=== PATIENT | female | born 1970 | race Caucasian/White ===

== ENCOUNTER 2017-05-23 14:11 | Emergency (ER) | payer OTHER, BC ==
[~2017-05-23] VITALS: Ht 165.1 cm; Wt 86.0 kg
[2017-05-23 14:13] VITALS: BP 176/107; PULSE 95; RESP 20; TEMP 97.6; O2SAT 100
[2017-05-23] MEDS ORDERED: IBUP800T23 PO (14:44)
[2017-05-23] MEDS ORDERED: CYCL1TAB29 PO (14:44)
[2017-05-23] MEDS ORDERED: ORPHENADRINE INJ 60 MG/2 ML AMP IM ONE (14:45)
[2017-05-23] MEDS ORDERED: KETOROLAC TROMETHAMINE 60 MG/2 ML (IM) VIAL IM ONE (14:45)
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
[2017-05-23 15:25] VITALS: BP 143/87; PULSE 81
== END 2017-05-23 16:22 | disposition home or self-care (01) ==
LOC: NEPK 14:11
DX: S20.211A Contusion of right front wall of thorax, initial encounter (principal); S16.1XXA Strain of muscle, fascia and tendon at neck level, initial encounter; S46.811A Strain of other muscles, fascia and tendons at shoulder and upper arm level, right arm, initial encounter; S46.812A Strain of other muscles, fascia and tendons at shoulder and upper arm level, left arm, initial encounter; V49.50XA Passenger injured in collision with unspecified motor vehicles in traffic accident, initial encounter
CPT/HCPCS: 96372; 99284; J1885; J2360; L0150